=== PATIENT | male | born 1960 | race Caucasian/White ===

== ENCOUNTER 2016-10-10 11:32 | Emergency (ER) | payer OTHER ==
[~2016-10-10] VITALS: Wt 110.0 kg
--- NOTE | 2016-10-10 11:37 | ERA ---
ER Documentation Chief Complaint Date/Time DATE: 10/10/16 TIME: 11:37 Chief Complaint High blood pressure HPI The patient is a 56-year-old male, presenting to the ER because of high blood pressure. He has been in the custody since last night. He is quite upset, denies headache, blurred vision, facial pain, neck pain, chest pain, dyspnea, abdominal pain, vomiting, dysuria, diarrhea. He does smoke and drink, denies any illicit drug Past medical history: None Past surgical history: Right inguinal herniorrhaphy ROS All systems reviewed and are negative except as per history of present illness. Medications Home Meds No Active Prescriptions or Reported Meds Allergies Allergies: Coded Allergies: Penicillins (Unverified Allergy, Unknown, CHILDHOOD, 10/10/16) bee venom protein (honey bee) (Unverified Allergy, Unknown, 10/10/16) Physical Exam Vitals Vital Signs Date Time Temp Pulse Resp B/P Pulse Ox O2 Delivery O2 Flow Rate FiO2 10/10/16 13:39 181/86 10/10/16 13:19 75 20 180/89 98 Room Air 10/10/16 13:00 75 183/87 10/10/16 11:40 98.0 74 20 189/97 95 Physical Exam Const: No acute distress. Anxious Head: Atraumatic. Eyes: Normal Conjunctiva. ENT: Normal External Ears, Nose and Mouth. Neck: Full range of motion. No meningismus. Resp: Clear to auscultation bilaterally. Cardio: Regular rate and rhythm, no murmurs. Abd: Soft, non distended, normal bowel sounds, non tender. Skin: No petechiae or rashes. Back: No midline or flank tenderness. Ext: No cyanosis, or edema. Neur: Awake and alert. No focal deficit Psych: Normal Mood and Affect. Result Diagram: 10/10/16 1155 10/10/16 1155 Results 24 hrs Laboratory Tests Test 10/10/16 11:55 White Blood Count 9.610^3/ul Red Blood Count 5.5110^6/ul Hemoglobin 16.4g/dl Hematocrit 48.5% Mean Corpuscular Volume 88.0fl Mean Corpuscular Hemoglobin 29.8pg Mean Corpuscular Hemoglobin Concent 33.8g/dl Red Cell Distribution Width 14.3% Platelet Count 94420^3/UL Mean Platelet Volume 9.3fl Neutrophils % 50.2% Lymphocytes % 34.7% Monocytes % 8.7% Eosinophils % 5.3% Basophils % 0.9% Nucleated Red Blood Cells % 0.0/100WBC Neutrophils # 4.810^3/ul Lymphocytes # 3.310^3/ul Monocytes # 0.810^3/ul Eosinophils # 0.510^3/ul Basophils # 0.110^3/ul Nucleated Red Blood Cells # 0.010^3/ul Urine Color LT. YELLOW Urine Clarity CLEAR Urine pH 6.5 Urine Specific [place]n 1.015 Urine Ketones NEGATIVE Urine Nitrite NEGATIVE Urine Bilirubin NEGATIVE Urine Urobilinogen 0.2 E.U./dL Urine Leukocyte Esterase NEGATIVE Urine Microscopic RBC NONE SEEN/HPF Urine Microscopic WBC 0-2/HPF Urine Amorphous Phosphates FEW Urine Hemoglobin NEGATIVE Urine Glucose NEGATIVE% Urine Total Protein TRACE Sodium Level 140mmol/L Potassium Level 5.0mmol/L Chloride Level 102mmol/L Carbon Dioxide Level 27mmol/L Anion Gap 16 Blood Urea Nitrogen 17mg/dl Creatinine 1.16mg/dl Glucose Level 117mg/dl Calcium Level 9.8mg/dl Total Bilirubin 0.7mg/dl Direct Bilirubin 0.00mg/dl Indirect Bilirubin 0.7mg/dl Aspartate Amino Transf (AST/SGOT) 46IU/L Alanine Aminotransferase (ALT/SGPT) 74IU/L Alkaline Phosphatase 79IU/L Total Protein 8.1g/dl Albumin 4.6g/dl Globulin 3.50g/dl Albumin/Globulin Ratio 1.31 Salicylates Level < 1.0mg/dl Urine Opiates Screen NEGATIVE Acetaminophen Level < 10.0ug/ml Urine Barbiturates NEGATIVE Urine Amphetamines Screen POSITIVE Urine Benzodiazepines Screen NEGATIVE Urine Cocaine Screen NEGATIVE Urine Cannabinoids NEGATIVE Ethyl Alcohol Level < 10.0mg/dl Current Medications Medications (Trade) Dose Ordered Sig/Leonidas Route PRN Reason Start Time Stop Time Status Last Admin Dose Admin Clonidine (Catapres) 0.2 mg ONCE ONCE PO 10/10/16 12:00 10/10/16 12:01 DC 10/10/16 11:53 Clonidine (Catapres) 0.2 mg ONCE ONCE PO 10/10/16 13:30 10/10/16 13:31 DC 10/10/16 13:39 Procedures/MDM MEDICAL MAKING DECISION: The patient is a 56-year-old male, presenting with acute elevated blood pressure, most likely due to acute amphetamine abuse. He was treated with clonidine 0.2 mg p.o. 2 with good blood pressure response. He denies suicidal, homicidal, auditory, visual hallucination. This is stable for outpatient follow-up The differential diagnoses considered include but are not limited to subarachnoid hemorrhage, occult trauma, CVA, meningitis, encephalitis, hypertension, tension, migraine, cluster, narcotic withdrawal, cervical spine disease. Departure Diagnosis: Primary Impression: HTN (hypertension) Additional Impression: Amphetamine abuse Condition: Good Comments I discussed the findings with the patient. I advised the patient to follow-up with the alf physician tomorrow, sooner if needed and return if any concern. DEE DEE PATIÑO MD October 10, 2016 11:37
[2016-10-10 12:06] LABS: ADD SCAN DIFF NO
[2016-10-10 12:10] LABS: BASOPHIL # 0.1 10^3/ul (0.0-0.1); BASOPHILS % 0.9 % (0.0-2.0); EOSINOPHILS # 0.5 10^3/ul (0.0-0.5); EOSINOPHILS % 5.3 % (0.0-7.0); HEMATOCRIT 48.5 % (42.0-52.0); HEMOGLOBIN 16.4 g/dl (14.0-18.0); LYMPHOCYTES # 3.3 10^3/ul (0.8-2.9); LYMPHOCYTES % 34.7 % (15.0-51.0); MEAN CORPUSCULAR HEMOGLOBIN 29.8 pg (29.0-33.0); MEAN CORPUSCULAR HGB CONC 33.8 g/dl (32.0-37.0); MEAN PLATELET VOLUME 9.3 fl (7.4-10.4); MONOCYTE # 0.8 10^3/ul (0.3-0.9); MONOCYTES % 8.7 % (0.0-11.0); NEUTROPHIL # 4.8 10^3/ul (1.6-7.5); NEUTROPHILS % 50.2 % (39.0-77.0); PLATELET COUNT 345 10^3/UL (140-415); RED BLOOD COUNT 5.51 10^6/ul (4.70-6.10); RED CELL DISTRIBUTION WIDTH 14.3 % (11.5-14.5); WHITE BLOOD COUNT 9.6 10^3/ul (4.8-10.8)
[2016-10-10 12:23] LABS: ADD UMIC YES; URINE BILIRUBIN (Dip) NEGATIVE (NEGATIVE); URINE BLOOD (Dip) NEGATIVE (NEGATIVE); URINE COLOR LT. YELLOW (YELLOW); URINE GLUCOSE (Dip) NEGATIVE (NEGATIVE); URINE KETONES (Dip) NEGATIVE (NEGATIVE); URINE LEUKOCYTE ESTERASE (Dip) NEGATIVE (NEGATIVE); URINE NITRITE (Dip) NEGATIVE (NEGATIVE); URINE TOTAL PROTEIN (Dip) TRACE (NEGATIVE); URINE UROBILINOGEN (Dip) 0.2 E.U./dL (0.1-1.0)
[2016-10-10 12:33] LABS: ALBUMIN 4.6 g/dl (3.3-4.9)
[2016-10-10 12:34] LABS: CHLORIDE 102 mmol/L (97-110); SODIUM 140 mmol/L (135-144)
[2016-10-10 12:36] LABS: ALANINE AMINOTRANSFERASE 74 IU/L (13-69); ALBUMIN/GLOBULIN RATIO 1.31; ALKALINE PHOSPHATASE 79 IU/L (42-121); ANION GAP 16 (8-16); ASPARTATE AMINO TRANSFERASE 46 IU/L (15-46); BILIRUBIN,INDIRECT 0.7 mg/dl (0-1.1); BILIRUBIN,TOTAL 0.7 mg/dl (0.2-1.3); BLOOD UREA NITROGEN 17 mg/dl (7-20); CARBON DIOXIDE 27 mmol/L (21-31); CREATININE 1.16 mg/dl (0.61-1.24); GLUCOSE 117 mg/dl (70-220); TOTAL PROTEIN 8.1 g/dl (6.1-8.1)
[2016-10-10 12:37] LABS: CALCIUM 9.8 mg/dl (8.4-10.2)
[2016-10-10 12:38] LABS: URINE RBCS NONE SEEN /HPF (0)
[2016-10-10 12:46] LABS: ACETAMINOPHEN < 10.0 ug/ml (10.0-30.0); ETHANOL < 10.0 mg/dl; SALICYLATE < 1.0 mg/dl (5.0-30.0)
[2016-10-10 12:53] LABS: BARBITURATES NEGATIVE (NEGATIVE); BENZODIAZEPINES NEGATIVE (NEGATIVE)
[2016-10-10 12:54] LABS: CANNABINOIDS NEGATIVE (NEGATIVE); COCAINE NEGATIVE (NEGATIVE); OPIATES NEGATIVE (NEGATIVE)
[2016-10-10 13:19] VITALS: PULSE 75; RESP 20
[2016-10-10 14:28] VITALS: BP 165/83
== END 2016-10-10 14:29 | disposition home or self-care (01) ==
LOC: E/R 11:32
DX: I10 Essential (primary) hypertension (principal); F15.10 Other stimulant abuse, uncomplicated
CPT/HCPCS: 36415; 80053; 80306; 80307; 81001; 81003; 85025; 99283